=== PATIENT | male | born 1985 | race Caucasian/White ===

== ENCOUNTER 2025-04-12 18:20 | Emergency (ER) | payer OTHER ==
[~2025-04-12] VITALS: Ht 180.3 cm; Wt 103.0 kg
[2025-04-12] MEDS ORDERED: OXYCODONE/APAP 5/325 TAB PO ONE (19:45)
[2025-04-12] MEDS ORDERED: HYDROCODON-ACE1 EA10 PO (21:08)
[2025-04-12] MEDS ORDERED: HYDROCODONE BIT/ACETAMINOPHEN 5/325 MG 1 TAB HOME.PACK PO ONE (21:15)
[2025-04-12 21:26] VITALS: BP 122/91
== END 2025-04-12 21:28 | disposition home or self-care (01) ==
LOC: ED 18:20
DX: S22.42XA Multiple fractures of ribs, left side, initial encounter for closed fracture (principal); W01.0XXA Fall on same level from slipping, tripping and stumbling without subsequent striking against object, initial encounter
CPT/HCPCS: 71045; 71250; 99284-25; A9270